=== PATIENT | female | born 1935 | race Caucasian/White ===

== ENCOUNTER → 2016-08-09 | Outpatient (CLI) | payer OTHER | LOC: BMCIMAGING 08:48 | DX: Z12.31 Encounter for screening mammogram for malignant neoplasm of breast (principal) | CPT/HCPCS: G0202 ==

== ENCOUNTER → 2017-08-13 | Outpatient (CLI) | payer OTHER | LOC: BMCIMAGING 08:13 | PROVIDERS: ATTEND Internal Medicine | DX: Z12.31 Encounter for screening mammogram for malignant neoplasm of breast (principal) ==

== ENCOUNTER → 2018-07-21 | Outpatient (CLI) | payer OTHER | LOC: BMCIMAGING 11:13 | PROVIDERS: ATTEND Internal Medicine | DX: R22.1 Localized swelling, mass and lump, neck (principal); E03.1 Congenital hypothyroidism without goiter | CPT/HCPCS: 76536-PO ==

== ENCOUNTER → 2018-09-15 | Outpatient (CLI) | payer OTHER | LOC: BMCIMAGING 11:50 | PROVIDERS: ATTEND Internal Medicine | DX: Z12.31 Encounter for screening mammogram for malignant neoplasm of breast (principal) ==

== ENCOUNTER → 2018-09-17 | Outpatient (CLI) | payer OTHER | LOC: BRMIMAGING 09:18 | PROVIDERS: ATTEND Internal Medicine | DX: N60.02 Solitary cyst of left breast (principal) | CPT/HCPCS: 76641-PO ==